=== PATIENT | female | born 1975 | race Caucasian/White ===

== ENCOUNTER → 2016-12-22 | Outpatient (CLI) | payer OTHER ==
[~2016-12-22] MED LIST: SIMV80TA OR; Z.0.BCPILL PO
== END ==
LOC: HPND 08:52
PROVIDERS: ATTEND Obstetrics & Gynecology
DX: O09.521 Supervision of elderly multigravida, first trimester (principal)
CPT/HCPCS: 36415; 36416; 76813

== ENCOUNTER → 2017-01-12 | Outpatient (CLI) | payer OTHER | LOC: HPND 09:01 | PROVIDERS: ATTEND Obstetrics & Gynecology | DX: O09.522 Supervision of elderly multigravida, second trimester (principal); Z3A.15 15 weeks gestation of pregnancy | CPT/HCPCS: 76815 ==